=== PATIENT | female | born 1940 | race Caucasian/White ===

== ENCOUNTER 2017-06-27 13:10 | Day surgery (SDC) | payer MEDICARE, OTHER ==
[~2017-06-27] VITALS: Ht 160 cm; Wt 93.2 kg
[~2017-06-27 13:10] MED LIST: ANAS1 PO; ASPI81CH PO; ATOR40TA PO; Antivert25 MG PO; BYSTOLIC PO; CALCAVITD PO; CALCIUM PO; CITA20 PO; CONEST.625; EYE OMEGA ADVA1 EACH PO; FISH1000 PO; GEMF600; Hair, Skin & N1 EACH PO; Icaps Tablet1 EACH PO; Isosorbide Mono60 MG PO; METO50 PO; METO50ER PO; MULVITMIND PO; MULVITMINF PO; OMEP20ER PO; OMEPRAZOLE MAGN20 MG PO; POTA10T PO; PRAM.5 PO; PROM25 PO; Ranexa1000 MG PO; SACC250C; SACC250C PO; SERT100 PO; SERT50; SERT50 PO; SIMV40 PO; TORSE20 PO; VITAMIN D-3 PO; VITAMIN D3 COM1 EACH PO; Valium5 MG PO
[2017-06-27] MEDS ORDERED: CHOL10002 (13:40)
[2017-06-27] MEDS ORDERED: VIT1CAPS12 (13:41)
== END 2017-06-27 15:35 | disposition home or self-care (01) ==
LOC: ORSCSDS 13:10
PROVIDERS: Internal Medicine Gastroenterology
PROC: 0DB58ZX Excision of Esophagus, Via Natural or Artificial Opening Endoscopic, Diagnostic (ICD-10-PCS; principal; 2017-06-27 14:30)
PROC: 0DB48ZX Excision of Esophagogastric Junction, Via Natural or Artificial Opening Endoscopic, Diagnostic (ICD-10-PCS; principal; 2017-06-27 14:30)
DX: R07.9 Chest pain, unspecified (principal); K44.9 Diaphragmatic hernia without obstruction or gangrene; K21.9 Gastro-esophageal reflux disease without esophagitis; G47.30 Sleep apnea, unspecified; I10 Essential (primary) hypertension; E66.9 Obesity, unspecified; Z68.37 Body mass index [BMI] 37.0-37.9, adult; Z79.82 Long term (current) use of aspirin; Z79.899 Other long term (current) drug therapy
CPT/HCPCS: 88305; J7120

== ENCOUNTER 2017-08-08 07:00 | Emergency (ER) | payer MEDICARE, OTHER ==
[~2017-08-08] VITALS: Ht 157.5 cm; Wt 90.7 kg
[~2017-08-08 07:00] MED LIST changes: +CHOL10002; +VIT1CAPS12
[2017-08-08 07:56] LABS: BASOPHILS ABSOLUTE AUTO 0.07 K/mm3 (0.00-0.23); BASOPHILS PERCENT AUTO 1 % (0-2); EOSINOPHILS ABSOLUTE AUTO 0.28 K/mm3 (0.00-0.68); EOSINOPHILS PERCENT AUTO 4 % (0-6); Hematocrit 35.7 % (33.0-51.0); Hemoglobin 11.6 g/dL (11.5-16.0); IMMATURE GRAN ABSOLUTE AUTO 0.04 K/mm3 (0.00-0.10); IMMATURE GRAN PERCENT AUTO 1 % (0-1); LYMPHOCYTES ABSOLUTE AUTO 1.78 K/mm3 (0.84-5.20); LYMPHOCYTES PERCENT AUTO 24 % (21-46); MONOCYTES ABSOLUTE AUTO 0.56 K/mm3 (0.16-1.47); MONOCYTES PERCENT AUTO 8 % (4-13); Mean Corpuscular HGB Conc 32.5 g/dL (31.5-36.5); Mean Corpuscular Volume 96 fL (80-100); Mean Platelet Volume 11.3 fL (9.1-12.4); NEUTROPHILS ABSOLUTE AUTO 4.68 K/mm3 (1.96-9.15); NEUTROPHILS PERCENT AUTO 63 % (41-73); Platelet Count 189 K/mm3 (150-400); RDW Coefficient Variation 13.2 % (11.7-14.2); RDW Standard Deviation 46.5 fL (35.1-46.3); Red Blood Cell Count 3.74 M/mm3 (3.80-5.20); White Blood Cell Count 7.41 K/mm3 (4.00-11.30)
[2017-08-08 08:13] LABS: Troponin I <0.015 ng/mL (0.000-0.040)
[2017-08-08 08:17] LABS: Alanine Aminotransfer (ALT/SGP 30 U/L (12-78); Albumin, Blood 3.4 g/dL (3.4-5.0); Albumin/Globulin Ratio 0.9 (0.8-1.8); Alk Phos 97 U/L (50-136); Aspartate Aminotrans (AST/SGOT 23 U/L (12-37); Bilirubin, Total 0.3 mg/dL (0.1-1.0); Blood Urea Nitrogen 13 mg/dL (8-24); Bun/Creatinine Ratio 14.1 (12.0-20.0); CO2, Blood 23 mmol/L (21-32); Creatinine, Blood 0.92 mg/dL (0.40-1.00); Globulin, Blood 3.6 g/dL (2.2-4.0); Glomerular Filtration Rate >60 (60-); Glucose, Blood 110 mg/dL (70-99)
[2017-08-08 08:29] LABS: Anion Gap 8 mmol/L (6-16); Calcium, Blood 8.6 mg/dL (8.5-10.1); Chloride, Blood 111 mmol/L (98-108); Potassium, Blood 4.5 mmol/L (3.5-5.5); Sodium, Blood 142 mmol/L (136-145)
[2017-08-08] MEDS ORDERED: Zithromax250 MG PO (09:52)
== END 2017-08-08 10:04 | disposition home or self-care (01) ==
LOC: ER 07:00
PROVIDERS: Emergency Medicine
DX: J84.9 Interstitial pulmonary disease, unspecified (principal); Z88.5 Allergy status to narcotic agent; Z79.899 Other long term (current) drug therapy; Z79.82 Long term (current) use of aspirin
CPT/HCPCS: 36415; 71046; 80053; 83690; 83880; 84484; 85025; 93005; 93010; 99284

== ENCOUNTER 2018-09-11 07:29 | Day surgery (SDC) | payer MEDICARE, OTHER ==
[~2018-09-11] VITALS: Ht 160 cm; Wt 98.6 kg
[~2018-09-11 07:29] MED LIST changes: +METF500; +Zithromax250 MG PO
[2018-09-11] MEDS ORDERED: Furosemide20 MG PO (08:24)
[2018-09-11] MEDS ORDERED: AMLO5 PO (08:24)
== END 2018-09-11 09:35 | disposition home or self-care (01) ==
LOC: ORSCSDS 07:29
PROVIDERS: Ophthalmology
PROC: 08RK3JZ Replacement of Left Lens with Synthetic Substitute, Percutaneous Approach (ICD-10-PCS; principal; 2018-09-11 09:00)
DX: H25.12 Age-related nuclear cataract, left eye (principal); I10 Essential (primary) hypertension; D86.9 Sarcoidosis, unspecified; E11.36 Type 2 diabetes mellitus with diabetic cataract; E66.9 Obesity, unspecified; Z68.38 Body mass index [BMI] 38.0-38.9, adult; Z79.82 Long term (current) use of aspirin; Z79.84 Long term (current) use of oral hypoglycemic drugs; Z79.899 Other long term (current) drug therapy
CPT/HCPCS: 82947; J2001; J2250; J3301; J7120; V2632

== ENCOUNTER → 2020-04-16 | Outpatient (CLI) | payer MEDICARE, OTHER ==
[~2020-04-16] MED LIST changes: +AMLO5 PO; +Furosemide20 MG PO
[2020-04-16 14:07] LABS: Candida species (DNA Probe) Negative (NEGATIVE); G. vaginalis (DNA Probe) Negative (NEGATIVE); T. vaginalis (DNA Probe) Negative (NEGATIVE)
== END | disposition home or self-care (01) ==
LOC: LAB SHORT 10:40 → LAB 10:40
PROVIDERS: Obstetrics & Gynecology
DX: N76.0 Acute vaginitis (principal)
CPT/HCPCS: 87480; 87510; 87660

== ENCOUNTER → 2023-01-05 | Outpatient (CLI) | payer MEDICARE, OTHER ==
[~2023-01-05] MED LIST changes: -CHOL10002; -METF500; +METF500 PO; +OXAYDO5 M1 PO; +RANO500T PO; +SULTRIDS PO; +VITAMIN D310 MC4 PO
[2023-01-05 11:12] LABS: BASOPHILS ABSOLUTE AUTO 0.07 K/mm3 (0.00-0.23); BASOPHILS PERCENT AUTO 1 % (0-2); EOSINOPHILS ABSOLUTE AUTO 0.24 K/mm3 (0.00-0.68); EOSINOPHILS PERCENT AUTO 3 % (0-6); Hematocrit 41.3 % (33.0-51.0); Hemoglobin 13.9 g/dL (11.5-16.0); IMMATURE GRAN ABSOLUTE AUTO 0.06 K/mm3 (0.00-0.10); IMMATURE GRAN PERCENT AUTO 1 % (0-1); LYMPHOCYTES ABSOLUTE AUTO 1.94 K/mm3 (0.84-5.20); LYMPHOCYTES PERCENT AUTO 24 % (21-46); MONOCYTES ABSOLUTE AUTO 0.53 K/mm3 (0.16-1.47); MONOCYTES PERCENT AUTO 7 % (4-13); Mean Corpuscular HGB 31.1 pg (26.0-34.0); Mean Corpuscular HGB Conc 33.7 g/dL (31.5-36.5); Mean Corpuscular Volume 92 fL (80-100); Mean Platelet Volume 10.7 fL (9.1-12.4); NEUTROPHILS ABSOLUTE AUTO 5.17 K/mm3 (1.96-9.15); NEUTROPHILS PERCENT AUTO 65 % (41-73); Platelet Count 218 K/mm3 (150-400); RDW Coefficient Variation 13.4 % (11.7-14.2); RDW Standard Deviation 45.5 fL (35.1-46.3); Red Blood Cell Count 4.47 M/mm3 (3.80-5.20); White Blood Cell Count 8.01 K/mm3 (4.00-11.30)
[2023-01-05 11:23] LABS: Albumin, Blood 4.2 g/dL (3.4-5.0); Albumin/Globulin Ratio 1.1 (0.8-1.8); Bilirubin, Total 0.5 mg/dL (0.1-1.0); Bun/Creatinine Ratio 13.1 (12.0-20.0); Calcium, Blood 9.3 mg/dL (8.5-10.1); Creatinine, Blood 1.3 mg/dL (0.40-1.00); Globulin, Blood 3.9 g/dL (2.2-4.0); Magnesium, Blood 2.2 mg/dL (1.6-2.4); Potassium, Blood 3.9 mmol/L (3.5-5.5); Total Protein, Blood 8.1 g/dL (6.4-8.2)
== END | disposition home or self-care (01) ==
LOC: LAB SHORT 11:07 → LAB 11:07
PROVIDERS: Chiropractor
DX: R07.9 Chest pain, unspecified (principal)
CPT/HCPCS: 80053; 83735; 83880; 84484; 85025; 85379

== ENCOUNTER → 2023-09-12 | Outpatient (CLI) | payer OTHER | LOC: LAB SHORT 10:40 → LAB 10:40 | DX: R82.90 Unspecified abnormal findings in urine (principal) | CPT/HCPCS: 87086 ==

== ENCOUNTER 2024-02-11 09:06 | Day surgery (SDC) | payer OTHER ==
[2024-02-11] VITALS (9 sets, daily range): BP systolic 128–163; BP diastolic 64–117
[~2024-02-11] VITALS: Ht 160 cm; Wt 98.0 kg
[~2024-02-11 09:06] MED LIST changes: +Heparin Sodium 1000 Units/ML 10ML MDV ONE; +NS 1,000 ML IV ONE; +NS 250 ML IV ONE; +Nitroglycerin 2 MG/20 ML BTL ONE; -OMEPRAZOLE MAGN20 MG PO; +OZEMPIC0.25 MG/02 SC; +Verapamil HCL 2.5 MG/ML 2ML Injection ONE
[2024-02-11] MEDS ORDERED: Aspirin 325 MG Tab ONE (09:47)
[2024-02-11] MEDS ORDERED: NS 1,000 ML IV ONE (09:51)
[2024-02-11] MEDS ORDERED: FentaNYL Citrate 50 MCG/ML 2 ML Injection ONE (09:51)
[2024-02-11] MEDS ORDERED: Midazolam HCl 1MG / ML 2ML Vial ONE (09:51)
[2024-02-11] MEDS ORDERED: VITAMIN D325 MC3 PO (12:02)
[2024-02-11] MEDS ORDERED: PRESERVISION A1 EAC2 PO (12:02)
[2024-02-11] MEDS ORDERED: CALCIUM 600 +1 EA11 PO (12:03)
--- NOTE | 2024-02-11 14:00 | NUR ---
DR JANE IN ROOM DISCUSSING PLAN OF CARE. VSS. RAJIV. FAMILY AT BEDSIDE.
--- NOTE | 2024-02-11 14:45 | NUR ---
RHYTHM MONITOR PLACED PER DR MARIO. VSS. VANCE.
--- NOTE | 2024-02-11 15:15 | NUR ---
PT AND FAMILY VERBALIZES UNDERSTANDING WRITTEN AND VERBAL INSTRUCTIONS. DENIES QUESTIONS OR CONCERNS. PT IV DC'D. CATH INTACT. PRESSURE DSG APPLIED. PT R RADIAL TR BAND FULLY DEFLATED AND REMOVED. DOT DRESSING APPLIED WITH SPLINT. NO BLEEDING NOTED. VSS. NADN. PT DRESSES SELF WITHOUT DIFF. PT DC TO HOME VIA FAMILY BY DIEGO.
== END 2024-02-11 15:15 | disposition home or self-care (01) ==
LOC: MHTC 09:06
DX: I25.118 Atherosclerotic heart disease of native coronary artery with other forms of angina pectoris (principal); I13.0 Hypertensive heart and chronic kidney disease with heart failure and stage 1 through stage 4 chronic kidney disease, or unspecified chronic kidney disease; E11.22 Type 2 diabetes mellitus with diabetic chronic kidney disease; N18.31 Chronic kidney disease, stage 3a; I50.30 Unspecified diastolic (congestive) heart failure; C50.912 Malignant neoplasm of unspecified site of left female breast; E78.5 Hyperlipidemia, unspecified; K21.9 Gastro-esophageal reflux disease without esophagitis; G47.33 Obstructive sleep apnea (adult) (pediatric); D86.0 Sarcoidosis of lung; G25.81 Restless legs syndrome; Z79.82 Long term (current) use of aspirin; Z79.85 Long-term (current) use of injectable non-insulin antidiabetic drugs; Z79.899 Other long term (current) drug therapy
CPT/HCPCS: 76937; 93005; 93010; 93246; 93458; 93571; 99152; 99153; A9270; C1769; C1887; C1894; J1644; J2250; J3010; J7030; J7050; Q9967

== ENCOUNTER 2024-03-28 12:50 | Day surgery (SDC) | payer OTHER ==
[~2024-03-28] VITALS: Ht 157.5 cm; Wt 94.9 kg
[~2024-03-28 12:50] MED LIST changes: +CALCIUM 600 +1 EA11 PO; +CELEXA40 M1 PO; -Heparin Sodium 1000 Units/ML 10ML MDV ONE; -NS 1,000 ML IV ONE; -NS 250 ML IV ONE; -Nitroglycerin 2 MG/20 ML BTL ONE; +PRESERVISION A1 EAC2 PO; +VITAMIN D325 MC3 PO; -Verapamil HCL 2.5 MG/ML 2ML Injection ONE
[2024-03-28 13:19] LABS: BASOPHILS ABSOLUTE AUTO 0.08 K/mm3 (0.00-0.23); BASOPHILS PERCENT AUTO 1 % (0-2); EOSINOPHILS ABSOLUTE AUTO 0.21 K/mm3 (0.00-0.68); EOSINOPHILS PERCENT AUTO 2 % (0-6); Hematocrit 41.4 % (33.0-51.0); Hemoglobin 13.7 g/dL (11.5-16.0); IMMATURE GRAN ABSOLUTE AUTO 0.04 K/mm3 (0.00-0.10); IMMATURE GRAN PERCENT AUTO 0 % (0-1); LYMPHOCYTES ABSOLUTE AUTO 3.14 K/mm3 (0.84-5.20); LYMPHOCYTES PERCENT AUTO 29 % (21-46); MONOCYTES ABSOLUTE AUTO 0.89 K/mm3 (0.16-1.47); MONOCYTES PERCENT AUTO 8 % (4-13); Mean Corpuscular HGB 31.9 pg (26.0-34.0); Mean Corpuscular HGB Conc 33.1 g/dL (31.5-36.5); Mean Corpuscular Volume 96 fL (80-100); Mean Platelet Volume 10.8 fL (9.1-12.4); NEUTROPHILS ABSOLUTE AUTO 6.55 K/mm3 (1.96-9.15); NEUTROPHILS PERCENT AUTO 60 % (41-73); Platelet Count 226 K/mm3 (150-400); RDW Coefficient Variation 12.9 % (11.7-14.2); RDW Standard Deviation 45.6 fL (35.1-46.3); White Blood Cell Count 10.91 K/mm3 (4.00-11.30)
[2024-03-28] MEDS ORDERED: CeFAZolin Sodium 2,000 MG VIAL ONE (13:30)
[2024-03-28] MEDS ORDERED: FentaNYL Citrate 50 MCG/ML 2 ML Injection ONE (13:30)
[2024-03-28] MEDS ORDERED: Heparin Sodium 1000 Units/ML 10ML MDV ONE (13:30)
[2024-03-28] MEDS ORDERED: NS 100 ML IV ONE (13:30)
[2024-03-28] MEDS ORDERED: Midazolam HCl 1MG / ML 2ML Vial ONE (13:30)
[2024-03-28] MEDS ORDERED: CeFAZolin Sodium 1000 mg Vial ONE (13:30)
[2024-03-28] MEDS ORDERED: NS 1,000 ML IV ONE ×2 (13:31)
[2024-03-28 13:35] LABS: International Normalized Ratio 1.02; Prothrombin Time Results 10.9 Sec (9.7-11.5)
[2024-03-28 13:49] LABS: Bun/Creatinine Ratio 15.4 (12.0-20.0); Calcium, Blood 9.7 mg/dL (8.5-10.1); Creatinine, Blood 0.91 mg/dL (0.40-1.00)
[2024-03-28] MEDS ORDERED: Atropine Sulfate 0.1 MG/ML 10ML SYR ONE (14:10)
[2024-03-28] MEDS ORDERED: Ondansetron 4 MG TAB PO PRN (16:45)
[2024-03-28] MEDS ORDERED: FLU VACC TS2024-25(6MOS UP)/PF 45 MCG/0.5 ML SYRINGE IM PRN (16:45)
[2024-03-28 16:52] VITALS: BP 156/84
--- NOTE | 2024-03-28 17:28 | NUR ---
shift summary patient arrived to [facility] at approx 1630. patient had a pace maker placed. left chest wall has pacer that is swollen with ice packs in place, and to remain in place for 6 hours per md metz orders. vital signs stable. tele paced 78. patient is alert and oriented x4. neuro is intact. patient is able to make needs known and uses call light appropriately. denies pain, chest pain/pressure or shortness of breath. lung sounds clear throughout. see admit shift assessment for further detials. plan to monitor and observe over night and go home tomorrow.
[2024-03-28 20:52] VITALS: BP 179/84
[2024-03-28] MEDS ORDERED: Atorvastatin 40 MG Tab PO SCH (21:00)
[2024-03-28] MEDS ORDERED: Anastrozole 1 MG TAB PO SCH (21:00)
[2024-03-28] MEDS ORDERED: Metoprolol Succinate 50 MG TABCR PO SCH (21:20)
[2024-03-28] MEDS ORDERED: HydrALAZINE HCl 25 MG Tab PO PRN (21:20)
[2024-03-28 23:03] VITALS: BP 151/79
[2024-03-29 03:55] VITALS: BP 166/72
[2024-03-29 05:35] VITALS: BP 151/68
[2024-03-29] MEDS ORDERED: Omeprazole 20 MG CapCR PO SCH (06:00)
--- NOTE | 2024-03-29 06:28 | NUR ---
SHIFT SUMMARY PATIENT ALERT AND ORIENTED X4. HAD NO COMPLAINTS OF PAIN OR SHORTNESS OF BREATH OVERNIGHT. ON ROOM AIR WHILE AWAKE AND WORE HOME CPAP FOR SLEEP, SPO2 >90%. PATIENT WAS NOTED TO BE HYPERTENSIVE, DR BECERRA NOTIFIED. PATIENT MEDICATED PER HIS ORDERS. WILL CONTINUE TO MONITOR. CALL LIGHT WITHIN REACH.
[2024-03-29 07:44] VITALS: BP 152/64
[2024-03-29] MEDS ORDERED: METO50ER PO (08:50)
[2024-03-29] MEDS ORDERED: Atorvastatin 40 MG Tab PO SCH (09:00)
[2024-03-29] MEDS ORDERED: PRESERVISION AREDS 2 PO SCH (09:00)
[2024-03-29] MEDS ORDERED: Isosorbide Mononitrate 60 MG TABCR PO SCH (09:00)
[2024-03-29] MEDS ORDERED: Calcium/Vit D 600 mg-400 Unit Tab PO SCH (09:00)
[2024-03-29] MEDS ORDERED: Citalopram Hydrobromide 20 MG Tab PO SCH (09:00)
[2024-03-29] MEDS ORDERED: Furosemide 20 MG Tab PO SCH (09:00)
[2024-03-29] MEDS ORDERED: Potassium Chloride 10 Meq Tablet SA PO SCH (09:00)
[2024-03-29] MEDS ORDERED: Cholecalciferol 1000 Unit Tablet (=25MCG) PO SCH (09:00)
[2024-03-29] MEDS ORDERED: Anastrozole 1 MG TAB PO SCH (09:00)
[2024-03-29] MEDS ORDERED: Aspirin 81 MG Chew PO SCH (09:00)
[2024-03-29] MEDS ORDERED: Cholecalciferol 400 unit Tab PO SCH (09:00)
--- NOTE | 2024-03-29 09:28 | NUR ---
UPDATE DISCHARGE INSTRUCTIONS PROVIDED TO PT. PT EDUCATED ON PACEMAKER INSTRUCTIONS AND FOLLOW-UP. ALL QUESTIONS ANSWERED. ASSISTED PT IN DRESSING AND TAKEN OUT VIA WC
== END 2024-03-29 09:37 | disposition home or self-care (01) ==
LOC: MHTC 12:50 → PCU 16:35 → MHTC 03-29 09:37
PROVIDERS: Internal Medicine Cardiovascular Disease
DX: I44.1 Atrioventricular block, second degree (principal); I25.10 Atherosclerotic heart disease of native coronary artery without angina pectoris; I13.0 Hypertensive heart and chronic kidney disease with heart failure and stage 1 through stage 4 chronic kidney disease, or unspecified chronic kidney disease; E11.22 Type 2 diabetes mellitus with diabetic chronic kidney disease; N18.31 Chronic kidney disease, stage 3a; I50.32 Chronic diastolic (congestive) heart failure; D86.0 Sarcoidosis of lung; K21.9 Gastro-esophageal reflux disease without esophagitis; H35.3190 Nonexudative age-related macular degeneration, unspecified eye, stage unspecified; Z79.82 Long term (current) use of aspirin; G47.33 Obstructive sleep apnea (adult) (pediatric); Z79.899 Other long term (current) drug therapy
CPT/HCPCS: 33208; 71046; 80048; 85025; 85610; 93005; 93010; 99152; 99153; A9270; C1785; C1894; C1898; J0461; J0690; J1644; J2250; J3010; J7030; J7040; Q9967